=== PATIENT | female | born 1985 | race Caucasian/White ===

== ENCOUNTER 2017-10-27 06:13 | Inpatient (IN) | payer OTHER, MEDICAID ==
[2017-10-27] MEDS: LACTATED RINGER'S 500 ML IV ×5 (07:00→23:58)
[2017-10-27] MEDS: CEFAZOLIN 2 GM/50 ML (PMX) 50 ML IVPB ×3 (08:03→23:45)
[2017-10-27 08:48] LABS: ADD MAN DIFF? NO
[2017-10-27 08:50] LABS: BASOPHILS % 0.3 % (0.0-2.0); EOSINOPHILS % 0.2 % (0.0-7.0); HEMATOCRIT 27.3 % (37.0-47.0); HEMOGLOBIN 9.5 g/dl (12.0-16.0); LYMPHOCYTES # 1.1 10^3/ul (0.8-2.9); LYMPHOCYTES % 8.7 % (15.0-51.0); MEAN CORPUSCULAR HEMOGLOBIN 31.7 pg (29.0-33.0); MEAN CORPUSCULAR HGB CONC 34.8 g/dl (32.0-37.0); MEAN PLATELET VOLUME 10.1 fl (7.4-10.4); NEUTROPHIL # 10.4 10^3/ul (1.6-7.5); NEUTROPHILS % 82.2 % (39.0-77.0); PLATELET COUNT 242 10^3/UL (140-415); RED CELL DISTRIBUTION WIDTH 12.8 % (11.5-14.5)
[2017-10-27 08:50] LABS: WHITE BLOOD COUNT 12.6 10^3/ul (4.8-10.8)
[2017-10-27 09:09] LABS: ANION GAP 14 (8-16); BLOOD UREA NITROGEN 6 mg/dl (7-20); CALCIUM 8.6 mg/dl (8.4-10.2); CARBON DIOXIDE 21 mmol/L (21-31); CHLORIDE 106 mmol/L (97-110); CREATININE 0.53 mg/dl (0.44-1.00); GLUCOSE 88 mg/dl (70-220); POTASSIUM 3.7 mmol/L (3.5-5.1); SODIUM 137 mmol/L (135-144)
[2017-10-27 09:43] LABS: ADD UMIC YES; UR ASCORBIC ACID NEGATIVE (NEGATIVE); UR BACTERIA FEW /HPF (NONE SEEN); UR BILIRUBIN (Dip) NEGATIVE (NEGATIVE); UR BLOOD (Dip) 1+ mg/dL (NEGATIVE); UR CLARITY CLOUDY (CLEAR); UR COLOR AMBER (YELLOW); UR GLUCOSE (Dip) NEGATIVE (NEGATIVE); UR KETONES (Dip) NEGATIVE (NEGATIVE); UR LEUKOCYTE ESTERASE (Dip) 3+ Leu/ul (NEGATIVE); UR MUCUS FEW /HPF (NONE SEEN); UR NITRITE (Dip) NEGATIVE (NEGATIVE); UR NONSQUAMOUS EPITHELIAL CELL 3 /HPF (NONE SEEN); UR RBC 4 /HPF (0-5); UR SPECIFIC GRAVITY (Dip) 1.014 (1.003-1.030); UR SQUAMOUS EPITHELIAL CELL MODERATE /HPF (FEW); UR TOTAL PROTEIN (Dip) NEGATIVE (NEGATIVE); UR UROBILINOGEN (Dip) 2+ mg/dL (NEGATIVE); UR WBC 91 /HPF (0-5)
[2017-10-27] MEDS ORDERED: ACETAMINOPHEN 325 MG TAB PO (11:00)
[2017-10-27] MEDS: ACETAMINOPHEN 325 MG TAB PO ×3 (11:04→22:38)
[2017-10-28] MEDS: LACTATED RINGER'S 1,000 ML IV ×4 (00:26→16:59)
[2017-10-28] MEDS: LACTATED RINGER'S 500 ML IV ×5 (04:00→16:42)
[2017-10-28] MEDS: ACETAMINOPHEN 325 MG TAB PO ×2 (07:48→17:34)
[2017-10-28] MEDS: CEFAZOLIN 2 GM/50 ML (PMX) 50 ML IVPB ×3 (07:48→23:59)
[2017-10-29] MEDS: LACTATED RINGER'S 1,000 ML IV ×2 (08:17)
[2017-10-29] MEDS: CEFAZOLIN 2 GM/50 ML (PMX) 50 ML IVPB ×2 (08:17→14:51)
[2017-10-30] MEDS ORDERED: LACTATED RINGER'S 1,000 ML IV (00:26)
== END 2017-10-29 16:15 | disposition home or self-care (01) | DRG 781 ==
LOC: OBT 06:13 → PP1 10-28 01:35 → L-D 06:14 → OBT 10:00 → L-D 10:00
DX: O23.02 Infections of kidney in pregnancy, second trimester (principal); Z3A.22 22 weeks gestation of pregnancy
CPT/HCPCS: 36415; 76775; 76817; 80048; 81001; 85025; 87040; 87086; 96360; 96361

== ENCOUNTER 2017-12-17 11:33 | Inpatient (IN) | payer OTHER ==
[2017-12-17] MEDS ORDERED: CARBOPROST 250 MCG INJ IM (14:00)
[2017-12-17] MEDS ORDERED: LIDOCAINE 1% (MPF) 30 ML INJ INJ (14:00)
[2017-12-17] MEDS ORDERED: MISOPROSTOL 200 MCG TAB PR (14:00)
[2017-12-17] MEDS ORDERED: METHYLERGONOVINE 0.2 MG INJ IM (14:00)
[2017-12-17] MEDS ORDERED: IBUPROFEN 600 MG TAB PO (14:00)
[2017-12-17] MEDS ORDERED: BUTORPHANOL 2 MG INJ IV (14:00)
[2017-12-17] MEDS ORDERED: OXYTOCIN 30 UNITS/LR 500 ML IV (14:00)
[2017-12-17] MEDS: LACTATED RINGER'S 1,000 ML IV ×2 (14:06→19:38)
[2017-12-17 14:28] LABS: ADD MAN DIFF? NO
[2017-12-17 14:31] LABS: WHITE BLOOD COUNT 12.4 10^3/ul (4.8-10.8)
[2017-12-17 14:31] LABS: BASOPHILS % 0.3 % (0.0-2.0); EOSINOPHILS # 0.1 10^3/ul (0.0-0.5); EOSINOPHILS % 0.6 % (0.0-7.0); HEMOGLOBIN 10.5 g/dl (12.0-16.0); LYMPHOCYTES # 1.7 10^3/ul (0.8-2.9); LYMPHOCYTES % 13.8 % (15.0-51.0); MEAN CORPUSCULAR HEMOGLOBIN 31.1 pg (29.0-33.0); MEAN CORPUSCULAR HGB CONC 33.9 g/dl (32.0-37.0); MEAN CORPUSCULAR VOLUME 91.7 fl (82.0-101.0); MEAN PLATELET VOLUME 10.2 fl (7.4-10.4); MONOCYTE # 0.6 10^3/ul (0.3-0.9); MONOCYTES % 4.9 % (0.0-11.0); NEUTROPHIL # 9.9 10^3/ul (1.6-7.5); NEUTROPHILS % 79.4 % (39.0-77.0); PLATELET COUNT 222 10^3/UL (140-415); RED BLOOD COUNT 3.38 10^6/ul (4.20-5.40); RED CELL DISTRIBUTION WIDTH 13.4 % (11.5-14.5)
[2017-12-17] MEDS: DINOPROSTONE 10 MG VAG SUPP VAG ×2 (14:48→17:53)
[2017-12-17 14:55] LABS: RAPID PLASMA REAGIN NONREACTIVE (NR)
[2017-12-17 15:23] LABS: INR 0.93; PROTIME 12.5 Sec (11.9-14.9)
[2017-12-17 15:24] LABS: PARTIAL THROMBOPLASTIN TIME 26.7 Sec (25.0-35.0)
[2017-12-17 15:25] LABS: AMPHETAMINE/METHAMPHETAMINE Negative (NEGATIVE); BARBITURATES Negative (NEGATIVE); BENZODIAZEPINES Negative (NEGATIVE); CANNABINOIDS Negative (NEGATIVE); COCAINE Negative (NEGATIVE)
[2017-12-17 15:26] LABS: OPIATES Negative (NEGATIVE)
[2017-12-18] MEDS: LACTATED RINGER'S 1,000 ML IV ×3 (04:00→20:04)
[2017-12-18] MEDS: DINOPROSTONE 10 MG VAG SUPP VAG (09:02)
[2017-12-18] MEDS ORDERED: LACTATED RINGER'S 1,000 ML IV (21:34)
[2017-12-18] MEDS ORDERED: OXYCODONE/ACETAMINOPHEN (5/325) TAB PO (22:00)
[2017-12-18] MEDS ORDERED: IBUPROFEN 600 MG TAB PO (22:00)
[2017-12-18] MEDS ORDERED: BUTORPHANOL 2 MG INJ IV ×2 (22:00)
[2017-12-19 01:29] LABS: INR 0.97; PARTIAL THROMBOPLASTIN TIME 25.1 Sec (25.0-35.0)
[2017-12-19 01:30] LABS: GLUCOSE, FASTING 84 mg/dl (70-110)
[2017-12-19 01:47] LABS: FREE THYROXINE INDEX (Calc) 3.36 ug/ml (0.65-3.89); T3 UPTAKE 22.1 % (23.5-40.5); T4 (THYROXINE) 15.2 ug/dl (5.5-11.0)
[2017-12-19] MEDS: OXYTOCIN 30 UNITS/LR 500 ML IV ×4 (02:10→19:32)
[2017-12-19] MEDS: LACTATED RINGER'S 1,000 ML IV ×4 (03:16→11:54)
[2017-12-19] MEDS ORDERED: FENTAnyl 2MCG/ML-ROPIV 0.2% 100 ML (10:45)
[2017-12-19] MEDS ORDERED: FENTAnyl 2MCG/ML-ROPIV 0.2% 100 ML BAG EPI (11:30)
[2017-12-19] MEDS ORDERED: NALOXONE (0.4 MG/ML) INJ IV (11:30)
[2017-12-19] MEDS: LACTATED RINGER'S 1,000 ML IV* (16:07)
[2017-12-19] MEDS ORDERED: ZOLPIDEM 5 MG TAB PO (16:30)
[2017-12-19] MEDS ORDERED: ACETAMINOPHEN 325 MG TAB PO (16:30)
[2017-12-19] MEDS ORDERED: METHYLERGONOVINE 0.2 MG INJ IM (16:30)
[2017-12-19] MEDS ORDERED: MAGNESIUM HYDROXIDE 30ML CUP PO (16:30)
[2017-12-19] MEDS ORDERED: OXYTOCIN 30 UNITS/LR 500 ML IV (16:30)
[2017-12-19] MEDS ORDERED: WITCH HAZEL/GLYCERIN PAD PR (16:30)
[2017-12-19] MEDS ORDERED: SENNA/DOCUSATE NA (8.6MG/50MG) TAB PO (16:30)
[2017-12-19] MEDS ORDERED: LANOLIN 7 GM TUBE TOP (16:30)
[2017-12-19] MEDS ORDERED: BENZOCAINE 20% 56 ML SPRAY TOP (16:30)
[2017-12-19] MEDS ORDERED: HYDROCODONE/APAP (5/325) TAB PO (16:30)
[2017-12-19] MEDS ORDERED: MISOPROSTOL 200 MCG TAB PR (16:30)
[2017-12-19] MEDS ORDERED: DIPHENHYDRAMINE 25 MG CAP PO (16:30)
[2017-12-19] MEDS ORDERED: CARBOPROST 250 MCG INJ IM (16:30)
[2017-12-19] MEDS: IBUPROFEN 800 MG TAB PO (18:00)
[2017-12-19 20:14] LABS: RHOGAM PROFILE 1 1
[2017-12-20 23:52] LABS: CARDIOLIPIN AB - IGA <11 APL; CARDIOLIPIN AB - IGG <14 GPL; CARDIOLIPIN AB - IGM <12 MPL
[2017-12-21] MEDS ORDERED: VARICELLA VACCINE LIVE/PF 1,350 UNIT/0.5 ML ML SC* (09:00)
[2017-12-21] MEDS ORDERED: DIPHTH/TET/ACEL PERTUSS (ADULT) 0.5 ML VIAL IM* (09:00)
[2017-12-21] MEDS ORDERED: MEASLES,MUMPS,RUBELLA VACCINE INJ SC* (09:00)
== END 2017-12-19 22:35 | disposition home or self-care (01) | DRG 775 ==
LOC: OBT 11:33 → L-D 11:34 → OBT 12:30 → L-D 12:30
PROC: 3E0P7VZ Introduction of Hormone into Female Reproductive, Via Natural or Artificial Opening (ICD-10-PCS; 2017-12-17)
PROC: 10E0XZZ Delivery of Products of Conception, External Approach (ICD-10-PCS; principal; 2017-12-19)
DX: O36.4XX0 Maternal care for intrauterine death, not applicable or unspecified (principal); Z37.1 Single stillbirth; Z3A.28 28 weeks gestation of pregnancy
CPT/HCPCS: 62319; 76815; 76818; 80307; 82947; 84436; 84479; 85025; 85384; 85460; 85610; 85613; 85730; 86147; 86592; 86850; 86870; 86885; 86900; 86901; 88307

== ENCOUNTER 2018-11-04 | Inpatient (IN) | payer OTHER ==
[2018-11-04] MEDS ORDERED: METHYLERGONOVINE 0.2 MG INJ IM (01:30)
[2018-11-04] MEDS ORDERED: LIDOCAINE 1% (MPF) 30 ML INJ INJ (01:30)
[2018-11-04] MEDS ORDERED: CARBOPROST 250 MCG INJ IM (01:30)
[2018-11-04] MEDS ORDERED: OXYTOCIN 30 UNITS/LR 500 ML IV ×2 (01:30)
[2018-11-04] MEDS ORDERED: MISOPROSTOL 200 MCG TAB PR (01:30)
[2018-11-04] MEDS ORDERED: BUTORPHANOL 2 MG INJ IV (01:30)
[2018-11-04 01:33] LABS: ADD MAN DIFF? NO
[2018-11-04 01:38] LABS: WHITE BLOOD COUNT 7.6 10^3/ul (4.8-10.8)
[2018-11-04 01:38] LABS: BASOPHILS % 0.4 % (0.0-2.0); EOSINOPHILS % 0.3 % (0.0-7.0); HEMATOCRIT 27.6 % (37.0-47.0); HEMOGLOBIN 9.1 g/dl (12.0-16.0); LYMPHOCYTES # 1.8 10^3/ul (0.8-2.9); LYMPHOCYTES % 23.4 % (15.0-51.0); MEAN CORPUSCULAR HEMOGLOBIN 27.3 pg (29.0-33.0); MEAN CORPUSCULAR VOLUME 82.9 fl (82.0-101.0); MEAN PLATELET VOLUME 11.9 fl (7.4-10.4); MONOCYTE # 0.4 10^3/ul (0.3-0.9); MONOCYTES % 5.2 % (0.0-11.0); NEUTROPHIL # 5.4 10^3/ul (1.6-7.5); NEUTROPHILS % 70.2 % (39.0-77.0); PLATELET COUNT 207 10^3/UL (140-415); RED BLOOD COUNT 3.33 10^6/ul (4.20-5.40); RED CELL DISTRIBUTION WIDTH 12.9 % (11.5-14.5)
[2018-11-04 01:57] LABS: INR 0.88; PT RATIO 0.9
[2018-11-04] MEDS: LACTATED RINGER'S 1,000 ML IV ×5 (02:05→21:33)
[2018-11-04 04:08] LABS: HEPATITIS B SURFACE ANTIGEN NEGATIVE (NEGATIVE)
[2018-11-04] MEDS: OXYTOCIN 30 UNITS/LR 500 ML IV (12:41)
[2018-11-04 15:00] LABS: RAPID PLASMA REAGIN NONREACTIVE (NR)
[2018-11-04] MEDS ORDERED: FENTAnyl 2MCG/ML-ROPIV 0.2% 100 ML (20:21)
[2018-11-04] MEDS ORDERED: DIPHENHYDRAMINE 50 MG INJ IV (21:30)
[2018-11-04] MEDS ORDERED: NALOXONE (0.4 MG/ML) INJ IV (21:30)
[2018-11-04] MEDS: ONDANSETRON 4 MG INJ IV (22:42)
[2018-11-05] MEDS: FENTAnyl 2MCG/ML-ROPIV 0.2% 100 ML BAG EPI ×2 (04:41→12:13)
[2018-11-05] MEDS: LACTATED RINGER'S 1,000 ML IV ×2 (04:42→13:10)
[2018-11-05] MEDS: OXYTOCIN 30 UNITS/LR 500 ML IV ×3 (12:13→19:45)
[2018-11-05] MEDS: IBUPROFEN 600 MG TAB PO (18:31)
[2018-11-05] MEDS: LACTATED RINGER'S 1,000 ML IV* (19:21)
[2018-11-05] MEDS ORDERED: BENZOCAINE 20% 56 ML SPRAY TOP (19:30)
[2018-11-05] MEDS ORDERED: ZOLPIDEM 5 MG TAB PO (19:30)
[2018-11-05] MEDS ORDERED: CARBOPROST 250 MCG INJ IM (19:30)
[2018-11-05] MEDS ORDERED: LANOLIN HPA 1 PKT TOP (19:30)
[2018-11-05] MEDS ORDERED: OXYTOCIN 30 UNITS/LR 500 ML IV (19:30)
[2018-11-05] MEDS: HYDROCODONE/APAP (5/325) TAB PO (19:41)
[2018-11-06] MEDS: IBUPROFEN 800 MG TAB PO ×5 (00:23→23:21)
[2018-11-06 06:41] LABS: ADD MAN DIFF? NO
[2018-11-06 06:47] LABS: BASOPHILS % 0.2 % (0.0-2.0); EOSINOPHILS # 0.1 10^3/ul (0.0-0.5); EOSINOPHILS % 0.7 % (0.0-7.0); HEMATOCRIT 24.7 % (37.0-47.0); HEMOGLOBIN 7.9 g/dl (12.0-16.0); LYMPHOCYTES # 1.9 10^3/ul (0.8-2.9); LYMPHOCYTES % 15.9 % (15.0-51.0); MEAN CORPUSCULAR HEMOGLOBIN 26.8 pg (29.0-33.0); MEAN CORPUSCULAR VOLUME 83.7 fl (82.0-101.0); MEAN PLATELET VOLUME 11.8 fl (7.4-10.4); MONOCYTE # 0.7 10^3/ul (0.3-0.9); MONOCYTES % 5.6 % (0.0-11.0); NEUTROPHILS % 77.1 % (39.0-77.0); PLATELET COUNT 168 10^3/UL (140-415); RED BLOOD COUNT 2.95 10^6/ul (4.20-5.40); RED CELL DISTRIBUTION WIDTH 13.1 % (11.5-14.5)
[2018-11-06 06:47] LABS: WHITE BLOOD COUNT 11.6 10^3/ul (4.8-10.8)
[2018-11-06] MEDS: HYDROCODONE/APAP (5/325) TAB PO (07:52)
[2018-11-06 13:18] LABS: RHOGAM PROFILE 1 1
[2018-11-07] MEDS: IBUPROFEN 800 MG TAB PO ×2 (05:57→11:55)
[2018-11-07] MEDS: VARICELLA VACCINE LIVE/PF 1,350 UNIT/0.5 ML ML SC* (09:00)
[2018-11-07] MEDS: MEASLES,MUMPS,RUBELLA VACCINE INJ SC* (09:00)
[2018-11-07] MEDS: DIPHTH/TET/ACEL PERTUSS (ADULT) 0.5 ML VIAL IM* (11:56)
== END 2018-11-07 16:10 | disposition home or self-care (01) | DRG 807 ==
LOC: OBT → L-D → PP1 11-05 20:00 → L-D 01:57 → OBT 00:49 → L-D 00:49
PROVIDERS: Obstetrics & Gynecology
PROC: 10E0XZZ Delivery of Products of Conception, External Approach (ICD-10-PCS; principal; 2018-11-05)
DX: O80 Encounter for full-term uncomplicated delivery (principal); Z37.0 Single live birth; Z3A.38 38 weeks gestation of pregnancy
CPT/HCPCS: 62319; 76815; 85025; 85610; 85730; 86592; 86850; 86870; 86885; 86900; 86901; 86902; 87340; 90686; 90715; 90716